=== PATIENT | male | born 1995 | race Caucasian/White ===

== ENCOUNTER 2018-06-16 09:24 | Day surgery (SDC) | payer BC, SELFPAY ==
[2018-06-16 09:44] VITALS: BP 142/67; PULSE 70; RESP 18; TEMP 36.9; O2SAT 100; BMI 25.7
[2018-06-16] MEDS: Cefazolin 2 GM in 0.9% Normal Saline 100 ML IV (10:33)
--- NOTE | 2018-06-16 10:45 | RAD_ITS ---
STUDY: X-RAY - RIGHT FOOT CLINICAL: Male, 22 years old. ORIF TECHNIQUE: 8 intraoperative view(s) of the foot. COMPARISON: None. FINDINGS: 8 Limited intraoperative views of the right foot were performed as the patient has undergone open reduction internal fixation of a Hannah fracture at the base of the fifth metatarsal. No demonstrated complications, follow-up recommended to assure complete osseous union RAD/Foot 2 Views IMPRESSION: Status post ORIF of a fracture at the base of the fifth metatarsal. Electronically Signed: Praneeth Forrester MD at 12:08 EST , Service support ,
[2018-06-16] MEDS: Bupivacaine Mpf 0.5% 30 ML VIAL (11:45)
[2018-06-16 12:17] VITALS: BP 104/58; BP 142/67; PULSE 85; RESP 16; O2SAT 100
[2018-06-16 12:18] VITALS: BP 110/46; BP 142/67; PULSE 72; RESP 16; TEMP 35.9; O2SAT 98
--- NOTE | 2018-06-16 12:19 | RAD_ITS ---
STUDY: X-RAY - RIGHT FOOT CLINICAL: Male, 22 years old. Postop from fifth toe surgery TECHNIQUE: 3 view(s) of the foot. COMPARISON: None. FINDINGS: Normal talus, calcaneus, and tarsal bones. Normal visualized subtalar, talonavicular, calcaneocuboid, tarsal and tarsometatarsal articulations. Surgical hardware noted in the fifth metatarsal from reduction of the fifth metatarsal fracture. Alignment is anatomic. Follow-up recommended to assure complete osseous union. Normal metatarsophalangeal joint of the great toe. Normal tibial and fibular sesamoid bones. Normal interphalangeal joint of the great toe. Normal phalanges of the great toe. Normal second through fifth metatarsophalangeal joints. Normal interphalangeal joints and phalanges of the lesser toes. The soft tissue structures are unremarkable. RAD/Foot min 3 Views IMPRESSION: Status post ORIF of a fifth metatarsal fracture. Follow-up recommended to assure complete osseous union. No postoperative complication noted. Electronically Signed: Praneeth Forrester MD at 13:48 EST , Service support ,
--- NOTE | 2018-06-16 12:22 | PCM.OPRPT ---
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 He had presented to my clinic following his injury. 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 Nonoperative and operative options were discussed at length with the patient, his sister and his mother through multiple conversation. He also saw another surgeon for his opinion. He presents today for surgical intervention. All risks, complications, and alternatives were discussed with the patient, and the patient signed an informed consent. No guarantees were given. Procedure: On 06/16/18, Prabhakar Chilel was visually and verbally identified in the preoperative holding area. The consent form was again reviewed with the patient, as were all risks, complications, and alternatives and the patient wished to proceed with the proposed surgery. The right foot was marked as the correct operative extremity. The patient was brought to the operating room and placed on the operating room table in a lazy lateral position. A lead apron was placed circumferentially around the patient for protection from intra operative fluoroscopy. After induction by anesthesia, a surgical time out was performed and all present were in agreement. a pneumatic thigh tourniquet was then placed. At this time the right lower extremity was prepped and draped in the usual sterile fashion. The thigh tourniquet was not inflated and hemostasis was maintained through anatomic dissection. At this time attention was directed to the right lateral foot. Using a kwire and intraoperative fluoroscopy, the dimensions of the 5th metatarsal were defined and drawn. A stab incision was then made and a kwire on power was placed high and inside just proximal to the base of the 5th metatarsal. A kwire was then placed under intraoperative fluoroscopy from the base of the 5th metatarsal and distally down the intramedulllary canal, crossing the fracture line. Good position was confirmed on AP, oblique and lateral views. A 4.0 cannulated screw was then drilled for and measured per material control analyst guidelines and under intraoperative fluoroscopy. The screw was then placed under intraoperative fluoroscopy with axial pressure to the 5th metatarsal. It was noted to have good fixation and position, as all threads crossed the fracture line and there was good compression of the fracture line. This was confirmed on all three views. The guidewire was removed. The stab incision was then flushed with normal sterile saline and a 3.0 prolene was placed. 10 cc of 0.5% marcaine plain was then injected to the anterior and lateral ankle. Adaptic and dry, sterile dressings were placed over the incision. A multilayer compressive dressing with a well padded posterior splint was then applied. Intra operative fluoroscopy was utilized throughout the case, > 1 hour, to aid in visualization and confirmation of fracture reduction and screw and plate fixations. Interpretation of the images was vital to my decision making process. The patient tolerated the procedure and anesthesia well. The patient was then transported to the postanesthesia care unit by a member of the anesthesia team and myself with all vital signs stable and neurovascular status of the right lower extremity equal to pre-operative levels. At the end of the case all sponge, needle and instrument counts were found to be correct. Grafts/Implants Used: Otto 4.0 cannulated screw - Complications none - Admit VTE Documentation VTE Present on Admission: No VTE Mechan Device Prophylaxis: SCD's, Knee High LUKE Hose VTE Pharm Prophylaxis ordered?: Yes
--- NOTE | 2018-06-16 12:27 | OP.PCM_ITS ---
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 He had presented to my clinic following his injury. 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 Nonoperative and operative options were discussed at length with the patient, his sister and his mother through multiple conversation. He also saw another surgeon for his opinion. He presents today for surgical intervention. All risks, complications, and alternatives were discussed with the patient, and the patient signed an informed consent. No guarantees were given. Procedure: On 06/16/18, Prabhakar Chilel was visually and verbally identified in the preoperative holding area. The consent form was again reviewed with the patient, as were all risks, complications, and alternatives and the patient wished to proceed with the proposed surgery. The right foot was marked as the correct operative extremity. The patient was brought to the operating room and placed on the operating room table in a lazy lateral position. A lead apron was placed circumferentially around the patient for protection from intra operative fluoro scopy. After induction by anesthesia, a surgical time out was performed and all present were in agreement. a pneumatic thigh tourniquet was then placed. At this time the right lower extremity was prepped and draped in the usual sterile fashion. The thigh tourniquet was not inflated and hemostasis was maintained through anatomic dissection. At this time attention was directed to the right lateral foot. Using a kwire and intraoperative fluoroscopy, the dimensions of the 5th metatarsal were defined and drawn. A stab incision was then made and a kwire on power was placed high and inside just proximal to the base of the 5th metatarsal. A kwire was then placed under intraoperative fluoroscopy from the base of the 5th metatarsal and distally down the intramedulllary canal, crossing the fracture line. Good position was confirmed on AP, oblique and lateral views. A 4.0 cannulated screw was then drilled for and measured per wire photo operator guidelines and under intraoperative fluoroscopy. The screw was then placed under intraoperative fluoroscopy with axial pressure to the 5th metatarsal. It was noted to have good fixation and position, as all threads crossed the fracture line and there was good compression of the fracture line. This was confirmed on all three views. The guidewire was removed. The stab incision was then flushed with normal sterile saline and a 3.0 prolene was placed. 10 cc of 0.5% marcaine plain was then injected to the anterior and lateral ankle. Adaptic and dry, sterile dressings were placed over the incision. A multilayer compressive dressing with a well padded posterior splint was then applied. Intra operative fluoroscopy was utilized throughout the case, > 1 hour, to aid in visualization and confirmation of fracture reduction and screw and plate fixations. Interpretation of the images was vital to my decision making process. The patient tolerated the procedure and anesthesia well. The patient was then transported to the postanesthesia care unit by a member of the anesthesia team and myself with all vital signs stable and neurovascular status of the right lower extremity equal to pre-operative levels. At the end of the case all sponge, needle and instrument counts were found to be correct. Grafts/Implants Used: Otto 4.0 cannulated screw - Complications none - Admit VTE Documentation VTE Present on Admission: No VTE Mechan Device Prophylaxis: SCD's, Knee High LUKE Hose VTE Pharm Prophylaxis ordered?: Yes
--- NOTE | 2018-06-16 12:27 | PCM.DC.ORTHO ---
Discharge Activity: May Not Drive, May not drive while taking narcotic pain medications., May Not Shower, Use Walker, Use Crutches Ice area for (Minutes): 20 - Apply ice behind the right knee 20 minutes of each hour while awake Weight Bearing Status: No weight bearing Keep extremity elevated above heart level: Operative Extremity Call your doctor if your incision/area has: Sudden Increased Bleeding Call your doctor if you observe: Fever of 101 or Higher, Shortness of breath, Dizziness, Chest pain, Increased palpitations (irregular heartbeat), Calf discomfort, Uncontrolled pain Cleanse incision/area with: Keep Dressing Clean & Dry Allergies/Adverse Reactions: Allergies ZITHROMYCIN Allergy (Uncoded 06/08/18 08:18) Hives Medications to take at Discharge Divalproex Sodium [Depakote] 2,500 mg PO BID 06/08/18 Enoxaparin Sodium [Lovenox] 40 mg SQ DAILY 28 Days #28 syringe 06/16/18 Hydrocodone Bitart/Apap 5-325 [[place] 5MG-325MG] 1 tab PO Q4H PRN PRN 7 Days #28 tab 06/16/18 The following prescriptions were given: Hydrocodone Bitart/Apap 5-325 [[place] 5MG-325MG] 1 tab PO Q4H PRN PRN 7 Days #28 tab PRN Reason: Pain Enoxaparin Sodium [Lovenox] 40 mg SQ DAILY 28 Days #28 syringe Primary Care Physician: Serge Payton MD [Primary Care Provider] - Test Results: Test results from this visit will be discussed in further detail at your follow-up appointment, if applicable. Please Follow Up With: Latoya Chambers DPM - Please follow up at your previously scheduled post operative appointment next week. Proposed Discharge Date: 06/16/18
--- NOTE | 2018-06-16 12:31 | DCINST_ITS ---
Discharge Activity: May Not Drive, May not drive while taking narcotic pain medications., May Not Shower, Use Walker, Use Crutches Ice area for (Minutes): 20 - Apply ice behind the right knee 20 minutes of each hour while awake Weight Bearing Status: No weight bearing Keep extremity elevated above heart level: Operative Extremity Call your doctor if your incision/area has: Sudden Increased Bleeding Call your doctor if you observe: Fever of 101 or Higher, Shortness of breath, Dizziness, Chest pain, Increased palpitations (irregular heartbeat), Calf discomfort, Uncontrolled pain Cleanse incision/area with: Keep Dressing Clean & Dry Allergies/Adverse Reactions: Allergies ZITHROMYCIN Allergy (Uncoded 06/08/18 08:18) Hives Medications to take at Discharge Divalproex Sodium [Depakote] 2,500 mg PO BID 06/08/18 Enoxaparin Sodium [Lovenox] 40 mg SQ DAILY 28 Days #28 syringe 06/16/18 Hydrocodone Bitart/Apap 5-325 [[place] 5MG-325MG] 1 tab PO Q4H PRN PRN 7 Days #28 tab 06/16/18 The following prescriptions were given: Hydrocodone Bitart/Apap 5-325 [[place] 5MG-325MG] 1 tab PO Q4H PRN PRN 7 Days #28 tab PRN Reason: Pain Enoxaparin Sodium [Lovenox] 40 mg SQ DAILY 28 Days #28 syringe Primary Care Physician: Serge Payton MD [Primary Care Provider] - Test Results: Test results from this visit will be discussed in further detail at your follow- up appointment, if applicable. Please Follow Up With: Latoya Chambers DPM - Please follow up at your previously scheduled post operative appointment next week. Proposed Discharge Date: 06/16/18
[2018-06-16 12:47] VITALS: BP 142/67; BP 145/79; PULSE 71; RESP 16; O2SAT 100
[2018-06-16 12:59] VITALS: BP 142/67; BP 148/74; PULSE 70; RESP 14; TEMP 35.9; O2SAT 100
[2018-06-16 15:15] VITALS: BP 122/78; BP 142/67; PULSE 74; RESP 18; TEMP 36.8; O2SAT 96
== END 2018-06-16 16:00 | disposition home or self-care (01) ==
LOC: SDC 09:28 → AC 09:28
PROVIDERS: Family Provider Pediatrics; PCP Pediatrics; Referring Provider Podiatrist Foot & Ankle Surgery; Visit Provider Podiatrist Foot & Ankle Surgery
PROC: (CPT 28485; principal; 2018-06-16 10:45)
DX: S92.354A Nondisplaced fracture of fifth metatarsal bone, right foot, initial encounter for closed fracture (principal); G40.909 Epilepsy, unspecified, not intractable, without status epilepticus; Z79.899 Other long term (current) drug therapy; X50.1XXA Overexertion from prolonged static or awkward postures, initial encounter; Y93.89 Activity, other specified; Y92.89 Other specified places as the place of occurrence of the external cause; Y99.8 Other external cause status
CPT/HCPCS: 28485; 73620; 73630; 76000; C1713; J7120; J2405